=== PATIENT | female | born 1980 | race Caucasian/White ===

== ENCOUNTER 2016-08-02 19:05 | Emergency (ER) | payer MEDICAID ==
[2016-08-02] MEDS ORDERED: IBUPROFEN 600 MG TABLET PO ONE (19:34)
--- NOTE | 2016-08-02 19:38 | Emergency Department Record ---
History of Present Illness - General Stated Complaint: FLU Time Seen by Provider: 08/02/16 19:31 Source: Patient Mode of Arrival: Ambulatory Limitations: No limitations - History of Present Illness Initial comments: 36 yo female presents to ED with a CC of body aches, eye pain, and fatigue that began this morning. Patient reports that her symptoms began this morning, reports that her and three boys all have influenza at home. Patient is here to be tested and receive treatment if positive. Onset/Timin -: Days(s) Radiation: Non-Radiating Quality: Aching Consistency: Constant Improves with: None Treatments Prior to Arrival: None - [place] Coma Scale Eye Response: (4) Open spontaneously Motor Response: (6) Obeys commands Verbal Response: (5) Oriented [place] Total: 15 - Related Data Home Medications Medication Instructions Recorded Confirmed Last Taken Trimethoprim [Trimethoprim] 100 mg PO QHS 06/07/16 08/02/16 08/01/16 Previous Rx's Medication Instructions Recorded Oseltamivir Phosphate [Tamiflu] 75 mg PO BID #10 capsule 08/02/16 Allergies Allergy/AdvReac Type Severity Reaction Status Date / Time amoxicillin trihydrate Allergy Intermediate VOMITING Verified 08/02/16 19:53 [From Augmentin] potassium clavulanate Allergy Intermediate VOMITING Verified 08/02/16 19:53 [From Augmentin] sulfamethoxazole Allergy Intermediate HIVES Verified 08/02/16 19:53 [From Bactrim] nitrofurantoin AdvReac VOMITING Verified 08/02/16 19:53 [From Macrobid] nitrofurantoin AdvReac VOMITING Verified 08/02/16 19:53 macrocrystalline [From Macrobid] Review of Systems Constitutional: Reports: Malaise. Denies: Chills, Fever, Night sweats Eyes: Reports: Eye pain. Denies: Eye discharge, Photophobia ENT: Denies: Congestion, Epistaxis, Hearing loss Respiratory: Denies: Cough, Dyspnea Cardiovascular: Denies: Chest pain, Dyspnea on exertion Endocrine: Denies: Fatigue, Heat or cold intolerance Gastrointestinal: Denies: Abdominal pain, Nausea, Vomiting Genitourinary: Denies: Frequency, Hematuria Musculoskeletal: Denies: Arthralgia, Back pain Skin: Denies: Bruising, Change in color Neurological: Denies: Abnormal gait, Confusion, Tingling, Tremors Psychiatric: Denies: Anxiety Hematological/Lymphatic: Denies: Anemia, Blood Clots Past Medical History - SOCIAL HISTORY Smoking Status: Former smoker Drug Use: None - RESPIRATORY Hx Respiratory Disorders: No - CARDIOVASCULAR Hx Cardio Disorders: No - NEURO Hx Neuro Disorders: No - GI Hx GI Disorders: Yes Hx Abdominal Pain: Yes Hx Irritable Bowel: Yes - Hx Genitourinary Disorders: Yes Hx UTI: Yes Comment:: sponge kidney - ENDOCRINE Hx Endocrine Disorders: Yes Hx Thyroid Disease: Yes (Hyper (now resolved)) - MUSCULOSKELETAL Hx Musculoskeletal Disorders: Yes Hx Back Injury: Yes - PSYCH Hx Psych Problems: Yes Hx Anxiety: Yes - HEMATOLOGY/ONCOLOGY Hx Hematology/Oncology Disorders: Yes Hx Blood Transfusions: Yes Hx Blood Transfusion Reaction: No Family Medical History Hx Cancer: Brother/Sister, Grandparents Hx HTN: Father Hx Seizures: Mother Physical Exam - General General Appearance: Alert, Oriented x3, Cooperative, No acute distress Limitations: No limitations - Head Head exam: Atraumatic, Normocephalic, Normal inspection Head exam detail: negative: Abrasion, Contusion, Nolan's sign, General tenderness, Hematoma, Laceration - Eye Eye exam: Normal appearance. negative: Conjunctival injection, Periorbital swelling, Periorbital tenderness, Scleral icterus - ENT Ear exam: negative: Auricular hematoma, Auricular trauma Nasal Exam: negative: Active bleeding, Discharge, Dried blood, Foreign body Mouth exam: negative: Drooling, Laceration, Muffled voice, Tongue elevation - Neck Neck exam: Normal inspection. negative: Meningismus, Tenderness - Respiratory Respiratory exam: Normal lung sounds bilaterally. negative: Respiratory distress, Rhonchi, Stridor, Wheezes - Cardiovascular Cardiovascular Exam: Regular rate, Normal rhythm, Normal heart sounds - GI/Abdominal GI/Abdominal exam: Soft. negative: Rebound, Rigid, Tenderness - Rectal Rectal exam: Deferred - exam: Deferred - Extremities Extremities exam: Normal inspection. negative: Calf tenderness, Pedal edema, Tenderness - Back Back exam: Denies: CVA tenderness (R), CVA tenderness (L) - Neurological Neurological exam: Alert, Normal gait, Oriented X3 - Psychiatric Psychiatric exam: Normal affect, Normal mood - Skin Skin exam: Normal color. negative: Abrasion Type of lesion: negative: abrasion Course - Reevaluation(s) Reevaluation #1: 08/02/16 20:08 Influenza negative. Patient however does clinically appear to have symptoms c/ w influenza, will treat with Tamiflu due to exposure and clinical appearance. Disposition Disposition: Discharge Clinical Impression: Viral Infection Disposition: Home, Self-Care Condition: (2) Stable Instructions: Influenza (ED) Additional Instructions: Return to ED if your symptoms worsen or if you have any concerns. Tamiflu as directed. Follow-up with your family doctor in 3-5 days as directed. Prescriptions: Oseltamivir Phosphate [Tamiflu] 75 mg PO BID #10 capsule Time of Disposition: 20:10
[2016-08-02 20:00] LABS: INFLUENZA A NEGATIVE (NEGATIVE)
[2016-08-02 20:01] LABS: INFLUENZA B NEGATIVE (NEGATIVE)
== END 2016-08-02 20:39 | disposition home or self-care (01) ==
LOC: ER 19:05
DX: B34.9 Viral infection, unspecified (principal); R53.83 Other fatigue
CPT/HCPCS: 87400; 99282

== ENCOUNTER 2016-12-13 21:05 | Emergency (ER) | payer MEDICAID ==
--- NOTE | 2016-12-13 21:10 | Emergency Department Record ---
History of Present Illness - General Stated complaint: UTI Time Seen by Provider: 12/13/16 21:09 Source: Patient - History of Present Illness Initial comments: Patient states that she has frequency and dysuria at the end of urinating which reveals bloody urine. She has medullary sponge kidney, and gets many UTI's. She had a Keflex pill left over from her last UTI so she took that about 4 hours ago. She denies f,c,n,v,d,flank pain. She is uncomfortable in her suprapubic region. MD Complaint: Dysuria - Related Data Home Medications Medication Instructions Recorded Confirmed Last Taken Trimethoprim [Trimethoprim] 100 mg PO QHS 06/07/16 12/13/16 08/01/16 Previous Rx's Medication Instructions Recorded Cephalexin [Keflex] 500 mg PO QID #40 cap 12/13/16 Allergies Allergy/AdvReac Type Severity Reaction Status Date / Time amoxicillin trihydrate Allergy Intermediate VOMITING Verified 08/02/16 19:53 [From Augmentin] potassium clavulanate Allergy Intermediate VOMITING Verified 08/02/16 19:53 [From Augmentin] sulfamethoxazole Allergy Intermediate HIVES Verified 08/02/16 19:53 [From Bactrim] nitrofurantoin AdvReac VOMITING Verified 08/02/16 19:53 [From Macrobid] nitrofurantoin AdvReac VOMITING Verified 08/02/16 19:53 macrocrystalline [From Macrobid] Review of Systems Reviewed: No additional complaints except as noted below Constitutional: Reports: As per HPI. Denies: Chills, Fever, Malaise, Night sweats, Weakness, Weight change Eyes: Reports: As per HPI. Denies: Eye discharge, Eye pain, Photophobia, Vision change ENT: Reports: As per HPI. Denies: Congestion, Dental pain, Ear pain, Epistaxis , Hearing loss, Throat pain Respiratory: Reports: As per HPI. Denies: Cough, Dyspnea, Hemoptysis, Stridor, Wheezes Cardiovascular: Reports: As per HPI. Denies: Arrhythmia, Chest pain, Dyspnea on exertion, Edema, Murmurs, Orthopnea, Palpitations, Paroxysmal nocturnal dyspnea, Rheumatic Fever, Syncope Endocrine: Reports: As per HPI. Denies: Fatigue, Heat or cold intolerance, Polydipsia, Polyuria Gastrointestinal: Reports: As per HPI. Denies: Abdominal pain, Constipation, Diarrhea, Hematemesis, Hematochezia, Melena, Nausea, Vomiting Genitourinary: Reports: As per HPI. Denies: Abnormal menses, Discharge, Dyspareunia, Dysuria, Frequency, Hematuria, Incontinence, Retention, Urgency Musculoskeletal: Reports: As per HPI. Denies: Arthralgia, Back pain, Gout, Joint swelling, Myalgia, Neck pain Skin: Reports: As per HPI. Denies: Bruising, Change in color, Change in hair/ nails, Lesions, Pruritus, Rash Neurological: Reports: As per HPI. Denies: Abnormal gait, Confusion, Headache, Numbness, Paresthesias, Seizure, Tingling, Tremors, Vertigo, Weakness Psychiatric: Reports: As per HPI. Denies: Anxiety, Auditory hallucinations, Depression, Homicidal thoughts, Suicidal thoughts, Visual hallucinations Hematological/Lymphatic: Reports: As per HPI. Denies: Anemia, Blood Clots, Easy bleeding, Easy bruising, Swollen glands Past Medical History - SOCIAL HISTORY Smoking Status: Former smoker Drug Use: None - RESPIRATORY Hx Respiratory Disorders: No - CARDIOVASCULAR Hx Cardio Disorders: No - NEURO Hx Neuro Disorders: No - GI Hx GI Disorders: Yes Hx Abdominal Pain: Yes Hx Irritable Bowel: Yes - Hx Genitourinary Disorders: Yes Hx UTI: Yes Comment:: sponge kidney - ENDOCRINE Hx Endocrine Disorders: Yes Hx Thyroid Disease: Yes (Hyper (now resolved)) - MUSCULOSKELETAL Hx Musculoskeletal Disorders: Yes Hx Back Injury: Yes - PSYCH Hx Psych Problems: Yes Hx Anxiety: Yes - HEMATOLOGY/ONCOLOGY Hx Hematology/Oncology Disorders: Yes Hx Blood Transfusions: Yes Hx Blood Transfusion Reaction: No Family Medical History Hx Cancer: Brother/Sister, Grandparents Hx HTN: Father Hx Seizures: Mother Physical Exam - General General Appearance: Alert, Oriented x3, Cooperative, No acute distress - Head Head exam: Normal inspection - Eye Eye exam: Normal appearance, PERRL Pupils: Normal accommodation - ENT ENT exam: Normal exam, Mucous membranes moist, Normal external ear exam, Normal orophraynx, TM's normal bilaterally Ear exam: Normal external inspection. negative: External canal tenderness Nasal Exam: Normal inspection. negative: Discharge, Sinus tenderness Mouth exam: Normal external inspection, Tongue normal Teeth exam: Normal inspection. negative: Dental caries Throat exam: Normal inspection. negative: Tonsillar erythema, Tonsillar exudate - Neck Neck exam: Normal inspection, Full ROM. negative: Tenderness - Respiratory Respiratory exam: Normal lung sounds bilaterally. negative: Respiratory distress - Cardiovascular Cardiovascular Exam: Regular rate, Normal rhythm, Normal heart sounds - GI/Abdominal GI/Abdominal exam: Soft, Normal bowel sounds, Other (uncomfortale with suprapubic palpation). negative: Tenderness - Rectal Rectal exam: Deferred - exam: Deferred - Extremities Extremities exam: Normal inspection, Full ROM, Normal capillary refill. negative: Tenderness - Back Back exam: Reports: Normal inspection, Full ROM. Denies: CVA tenderness (R), CVA tenderness (L), Muscle spasm, Rash noted, Tenderness - Neurological Neurological exam: Alert, Normal gait, Oriented X3, Reflexes normal - Psychiatric Psychiatric exam: Normal affect, Normal mood - Skin Skin exam: Dry, Intact, Normal color, Warm Medical Decision Making - Management Options MDM Management: No Additional Work-up Planned Disposition Disposition: Discharge Clinical Impression: UTI (urinary tract infection) Qualifiers: Urinary tract infection type: acute cystitis Hematuria presence: with hematuria Qualified Code(s): N30.01 - Acute cystitis with hematuria Disposition: Home, Self-Care Instructions: Urinary Tract Infection in Women (ED), Dysuria (ED) Additional Instructions: Take your home keflex 500 mg when you get home Take antibiotics until gone as directed. Follow up with PCP for repeat UA to be sure it clears. Push fluids. Tylenol or ibuprofen as needed as directed for pain. Prescriptions: Cephalexin [Keflex] 500 mg PO QID #40 cap
[2016-12-13 21:19] LABS: URINE APPEARANCE SL CLOUDY; URINE BILIRUBIN NEGATIVE (NEGATIVE); URINE BLOOD LARGE (NEGATIVE); URINE COLOR OTHER; URINE GLUCOSE (UA) NEGATIVE (NEGATIVE); URINE KETONE NEGATIVE (NEGATIVE); URINE LEUKOCYTE ESTERASE MODERATE (NEGATIVE); URINE NITRITE NEGATIVE (NEGATIVE)
[2016-12-13 21:28] LABS: HCG,QUALITATIVE URINE NEGATIVE (NEGATIVE); URINE AMORPHOUS SEDIMENT 2+; URINE BACTERIA 2+; URINE RBC >50 (NONE SEEN); URINE SQUAMOUS EPITHELIAL CELL 0 - 2 /hpf; URINE TRANSITIONAL EPI CELLS 0 - 2 /hpf; URINE WBC 21 - 35 (0-2/hpf)
== END 2016-12-13 21:38 | disposition home or self-care (01) ==
LOC: ER 21:05
DX: N30.01 Acute cystitis with hematuria (principal)
CPT/HCPCS: 81001; 81025; 99282

== ENCOUNTER 2017-01-01 13:41 | Emergency (ER) | payer MEDICAID ==
[2017-01-01] MEDS ORDERED: LORAZEPAM 2 MG/ML VIAL IV ONE (13:49)
[2017-01-01] MEDS ORDERED: ONDANSETRON HCL IV 4 MG/2 ML VIAL IVP ONE (13:56)
[2017-01-01] MEDS ORDERED: ORPHENADRINE CITRATE 60MG/2ML VIAL IVP ONE (13:56)
--- NOTE | 2017-01-01 13:56 | Emergency Department Record ---
History of Present Illness - General Chief Complaint: Neck Injury/Pain Stated Complaint: ARISTIDES,NECK PAIN Time Seen by Provider: 01/01/17 13:47 Source: Patient - History of Present Illness Initial Comments: Patient was getting her neck adjusted by a chiropractor robin prior to arricval. When she tried to get up she felt something pop and now has severe pain in her left neck and down her left arm. She has a history of disc problems in her neck and spine. MD Complaint: Neck pain - Related Data Home Medications Medication Instructions Recorded Confirmed Last Taken Trimethoprim [Trimethoprim] 100 mg PO QHS 06/07/16 12/13/16 08/01/16 Previous Rx's Medication Instructions Recorded Cephalexin [Keflex] 500 mg PO QID #40 cap 12/13/16 Ondansetron [Zofran Odt] 4 mg PO Q8H #20 tab.rapdis 01/01/17 Orphenadrine Citrate [Norflex] 100 mg PO Q12H PRN #20 tab 01/01/17 Tramadol HCl [Ultram] 50 mg PO Q8H #14 tab 01/01/17 Allergies Allergy/AdvReac Type Severity Reaction Status Date / Time amoxicillin trihydrate Allergy Intermediate VOMITING Verified 08/02/16 19:53 [From Augmentin] potassium clavulanate Allergy Intermediate VOMITING Verified 08/02/16 19:53 [From Augmentin] sulfamethoxazole Allergy Intermediate HIVES Verified 08/02/16 19:53 [From Bactrim] nitrofurantoin AdvReac VOMITING Verified 08/02/16 19:53 [From Macrobid] nitrofurantoin AdvReac VOMITING Verified 08/02/16 19:53 macrocrystalline [From Macrobid] Review of Systems Reviewed: No additional complaints except as noted below Constitutional: Reports: As per HPI. Denies: Chills, Fever, Malaise, Night sweats, Weakness, Weight change Eyes: Reports: As per HPI. Denies: Eye discharge, Eye pain, Photophobia, Vision change ENT: Reports: As per HPI. Denies: Congestion, Dental pain, Ear pain, Epistaxis , Hearing loss, Throat pain Respiratory: Reports: As per HPI. Denies: Cough, Dyspnea, Hemoptysis, Stridor, Wheezes Cardiovascular: Reports: As per HPI. Denies: Arrhythmia, Chest pain, Dyspnea on exertion, Edema, Murmurs, Orthopnea, Palpitations, Paroxysmal nocturnal dyspnea, Rheumatic Fever, Syncope Endocrine: Reports: As per HPI. Denies: Fatigue, Heat or cold intolerance, Polydipsia, Polyuria Gastrointestinal: Reports: As per HPI. Denies: Abdominal pain, Constipation, Diarrhea, Hematemesis, Hematochezia, Melena, Nausea, Vomiting Genitourinary: Reports: As per HPI. Denies: Abnormal menses, Discharge, Dyspareunia, Dysuria, Frequency, Hematuria, Incontinence, Retention, Urgency Musculoskeletal: Reports: As per HPI. Denies: Arthralgia, Back pain, Gout, Joint swelling, Myalgia, Neck pain Skin: Reports: As per HPI. Denies: Bruising, Change in color, Change in hair/ nails, Lesions, Pruritus, Rash Neurological: Reports: As per HPI. Denies: Abnormal gait, Confusion, Headache, Numbness, Paresthesias, Seizure, Tingling, Tremors, Vertigo, Weakness Psychiatric: Reports: As per HPI. Denies: Anxiety, Auditory hallucinations, Depression, Homicidal thoughts, Suicidal thoughts, Visual hallucinations Hematological/Lymphatic: Reports: As per HPI. Denies: Anemia, Blood Clots, Easy bleeding, Easy bruising, Swollen glands Past Medical History - SOCIAL HISTORY Smoking Status: Former smoker Drug Use: None - RESPIRATORY Hx Respiratory Disorders: No - CARDIOVASCULAR Hx Cardio Disorders: No - NEURO Hx Neuro Disorders: No - GI Hx GI Disorders: Yes Hx Abdominal Pain: Yes Hx Irritable Bowel: Yes - Hx Genitourinary Disorders: Yes Hx UTI: Yes Comment:: sponge kidney - ENDOCRINE Hx Endocrine Disorders: Yes Hx Thyroid Disease: Yes (Hyper (now resolved)) - MUSCULOSKELETAL Hx Musculoskeletal Disorders: Yes Hx Back Injury: Yes - PSYCH Hx Psych Problems: Yes Hx Anxiety: Yes - HEMATOLOGY/ONCOLOGY Hx Hematology/Oncology Disorders: Yes Hx Blood Transfusions: Yes Hx Blood Transfusion Reaction: No Family Medical History Hx Cancer: Brother/Sister, Grandparents Hx HTN: Father Hx Seizures: Mother Physical Exam - General General Appearance: Alert, Oriented x3, Cooperative, No acute distress, Severe distress (crying, anxious, hyperventillating) - Head Head exam: Normal inspection - Eye Eye exam: Normal appearance, PERRL Pupils: Normal accommodation - ENT ENT exam: Normal exam, Mucous membranes moist, Normal external ear exam, Normal orophraynx, TM's normal bilaterally Ear exam: Normal external inspection. negative: External canal tenderness Nasal Exam: Normal inspection. negative: Discharge, Sinus tenderness Mouth exam: Normal external inspection, Tongue normal Teeth exam: Normal inspection. negative: Dental caries Throat exam: Normal inspection. 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 negative: Respiratory distress - Cardiovascular Cardiovascular Exam: Regular rate, Normal rhythm, Normal heart sounds - GI/Abdominal GI/Abdominal exam: Soft, Normal bowel sounds. negative: Tenderness - Rectal Rectal exam: Deferred - exam: Deferred - Extremities Extremities exam: Normal inspection, Full ROM, Normal capillary refill. negative: Tenderness - Back Back exam: Reports: Normal inspection, Full ROM. Denies: Muscle spasm, Rash noted, Tenderness - Neurological Neurological exam: Alert, Normal gait, Oriented X3, Reflexes normal - Psychiatric Psychiatric exam: Normal affect, Normal mood - Skin Skin exam: Dry, Intact, Normal color, Warm Course - Reevaluation(s) Reevaluation #1: More comfortable, less anxious. 01/01/17 14:36 Reevaluation #2: Patient has greatly improved with her pain level but is not pain free in her left neck trapezius muscle mainly. 01/01/17 16:50 Medical Decision Making - Management Options MDM Management: Additional Work-up Planned (e.g. ADM/Transfer/OP Study) (Follow up with MRI through PCP) - Data Complexity MDM Data: X-Ray Ordered and/or Reviewed (CT Cervical spine: Degenerative changes C5-C6 level per radiologist.) - Lab Data Result diagrams: 01/01/17 14:10 01/01/17 14:10 Disposition Disposition: Discharge Clinical Impression: Cervical radiculopathy at C5, Cervical radiculopathy at C6 Disposition: Home, Self-Care Condition: (1) Good Instructions: Cervical Radiculopathy (ED) Additional Instructions: No lifting with arms. Follow up with PCP for MRI of cervical spine. Take zofran 30 minutes prior to taking other medications. Take norflex and ultram as directed for pain and muscle spasm., Prescriptions: Ondansetron [Zofran Odt] 4 mg PO Q8H #20 tab.rapdis Orphenadrine Citrate [Norflex] 100 mg PO Q12H PRN #20 tab PRN Reason: Muscle Spasms Tramadol HCl [Ultram] 50 mg PO Q8H #14 tab Forms: Patient Portal Access Quality - Quality Measures Quality Measures: N/A - Blood Pressure Screening Blood Pressure Classification: Pre-Hypertensive BP Reading Systolic Measurement: 123 Diastolic Measurement: 70 Screening for High Blood Pressure: < Normal BP, F/U Not Required > [[id number]] Normal BP Follow-up Interventions: No follow-up required
[2017-01-01] MEDS ORDERED: 0.9 % SODIUM CHLORIDE 1,000 ML BAG IV ONE (14:08)
[2017-01-01 14:27] LABS: BASO % 0.7 % (0-6); EOS % 0.7 % (0-6); GRAN % 52.1 % (47-80); HEMATOCRIT 43.1 % (35.0-47.0); HEMOGLOBIN 14.6 gm/dl (11.6-16.0); LYMPH % 37.3 % (16-45); MEAN CELL VOLUME 90.7 fl (81-97); MEAN CORPUSCULAR HEMOGLOBIN 30.7 pg (27-33); MEAN CORPUSCULAR HGB CONC 33.9 g/dl (32-36); MEAN PLATELET VOLUME 11.4 fl (7.4-10.4); MONO % 9.2 % (0-9); PLATELET COUNT 231 K/uL (130-400); RED BLOOD COUNT 4.75 M/uL (3.80-5.40); RED CELL DISTRIBUTION WIDTH 12.5 % (11.5-14.5)
[2017-01-01 14:38] LABS: ANION GAP 13.1 (7-16); BLOOD UREA NITROGEN 13 mg/dL (7-17); CARBON DIOXIDE 25.9 mmol/L (22-30); CREATININE 0.8 mg/dL (0.52-1.04); EST GLOMERULAR FILTRATION RATE > 60 ml/min; GLUCOSE,RANDOM 85 mg/dL (70-110)
--- NOTE | 2017-01-03 13:17 | CT SCAN REPORT ---
EXAM: CT OF THE BRAIN WITHOUT CONTRAST HISTORY: HEADACHE. TECHNIQUE: Sequential axial images were obtained from the foramen magnum to the vertex without contrast administration. FINDINGS: The brain volume is normal. There is no large territorial infarct, hemorrhage, mass effect or midline shift. The orbits, paranasal sinuses, and mastoid air cells are normal. IMPRESSION: NO ACUTE INTRACRANIAL ABNORMALITY IS APPRECIATED. JOB NUMBER: [id number] MTDD
--- NOTE | 2017-01-03 13:20 | CT SCAN REPORT ---
EXAM: CT OF THE CERVICAL SPINE WITHOUT CONTRAST HISTORY: PAIN. TECHNIQUE: Sequential axial images were obtained through the cervical spine without intravenous contrast administration. FINDINGS: There is normal vertebral body height and alignment. There is no evidence of fracture, subluxation or perched facet. There is disk spur complex at C5-C6. This produces bilateral neural foraminal narrowing. There is no central canal stenosis. IMPRESSION: 1. NO EVIDENCE OF FRACTURE, SUBLUXATION, OR PERCHED FACET. 2. AT THE C5-C6 LEVEL THERE IS A DISK SPUR COMPLEX EFFACING THE VENTRAL THECAL SAC. THIS PRODUCES NO SIGNIFICANT CENTRAL CANAL STENOSIS. JOB NUMBER: [id number] [facility]
== END 2017-01-01 17:07 | disposition home or self-care (01) ==
LOC: ER 13:41
DX: M54.12 Radiculopathy, cervical region (principal); R51 Headache
CPT/HCPCS: 99284 ×2; 96374; 96375; 85025; 80048; 72125; 70450; J2405; J2360

== ENCOUNTER 2017-07-16 15:59 | Emergency (ER) | payer MEDICAID ==
[2017-07-16 17:00] LABS: URINE APPEARANCE SL CLOUDY; URINE BILIRUBIN NEGATIVE (NEGATIVE); URINE BLOOD TRACE-I (NEGATIVE); URINE COLOR YELLOW; URINE GLUCOSE (UA) NEGATIVE (NEGATIVE); URINE KETONE NEGATIVE (NEGATIVE); URINE LEUKOCYTE ESTERASE NEGATIVE (NEGATIVE); URINE NITRITE NEGATIVE (NEGATIVE); URINE PROTEIN NEGATIVE (NEGATIVE); URINE UROBILINOGEN 0.2 E.U./dL (0.20 - 1.00)
[2017-07-16 17:07] LABS: HCG,QUALITATIVE URINE NEGATIVE (NEGATIVE); URINE AMORPHOUS SEDIMENT 2+; URINE BACTERIA FEW; URINE WBC 0 - 2 (0-2/hpf)
--- NOTE | 2017-07-16 18:11 | Emergency Department Record ---
History of Present Illness - General Chief Complaint: Abdominal Pain Stated Complaint: LT SIDE PAIN (KIDNEY) Time Seen by Provider: 07/16/17 18:00 Source: Patient Mode of Arrival: Ambulatory Limitations: No limitations - History of Present Illness Initial Comments: The patient is here due to L sided AP for about 3 hours prior to presenting to the ER. She states the pain is sharp and stabbing. There has been nausea associated with the pain but no vomiting or back pain. The patient also has had mild dysuria for the last 2 days and she gets frequent UTI's. She believes she has a UTI at this time. The patient denies any fever, vaginal issues, diarrhea or lightheadedness. MD Complaint: Abdominal pain Onset/Timin -: Hour(s) Location: LLQ Radiation: Other Consistency: Constant Improves With: Nothing Worsens With: Movement Associated Symptoms: Nausea - Related Data LMP Date: 06/24/17 Previous Rx's Medication Instructions Recorded Cephalexin [Keflex] 500 mg PO TID #21 cap 07/16/17 Phenazopyridine HCl [Pyridium] 100 mg PO TID #6 tablet 07/16/17 Allergies Allergy/AdvReac Type Severity Reaction Status Date / Time amoxicillin trihydrate Allergy Intermediate VOMITING Verified 07/16/17 17:46 [From Augmentin] ciprofloxacin [From Cipro] Allergy Intermediate VOMITING Verified 07/16/17 17:46 ciprofloxacin HCl Allergy Intermediate VOMITING Verified 07/16/17 17:46 [From Cipro] potassium clavulanate Allergy Intermediate VOMITING Verified 07/16/17 17:46 [From Augmentin] sulfamethoxazole Allergy Intermediate HIVES Verified 07/16/17 17:46 [From Bactrim] nitrofurantoin AdvReac VOMITING Verified 07/16/17 17:46 [From Macrobid] nitrofurantoin AdvReac VOMITING Verified 07/16/17 17:46 macrocrystalline [From Macrobid] Travel Screening - Travel/Exposure Within Last 30 Days Have you traveled within the last 30 days?: No - Travel Symptoms Symptom Screening: None Review of Systems Constitutional: Denies: Chills, Fever, Malaise Eyes: Denies: Eye discharge ENT: Denies: Congestion Respiratory: Denies: Cough Gastrointestinal: Reports: Abdominal pain, Nausea. Denies: Diarrhea, Vomiting Genitourinary: Reports: Dysuria Past Medical History - SOCIAL HISTORY Smoking Status: Former smoker - RESPIRATORY Hx Respiratory Disorders: No - CARDIOVASCULAR Hx Cardio Disorders: No - NEURO Hx Neuro Disorders: No - GI Hx GI Disorders: Yes Hx Abdominal Pain: Yes Hx Irritable Bowel: Yes - Hx Genitourinary Disorders: Yes Hx UTI: Yes Comment:: sponge kidney - ENDOCRINE Hx Endocrine Disorders: Yes Hx Thyroid Disease: Yes (Hyper (now resolved)) - MUSCULOSKELETAL Hx Musculoskeletal Disorders: Yes Hx Back Injury: Yes - PSYCH Hx Psych Problems: Yes Hx Anxiety: Yes - HEMATOLOGY/ONCOLOGY Hx Hematology/Oncology Disorders: Yes Hx Blood Transfusions: Yes Hx Blood Transfusion Reaction: No Family Medical History Any Significant Family History?: Yes Hx Cancer: Brother/Sister, Grandparents Hx HTN: Father Hx Seizures: Mother Physical Exam - General General Appearance: Alert, Oriented x3, Cooperative, No acute distress - Head Head exam: Atraumatic, Normocephalic, Normal inspection - Eye Eye exam: Normal appearance, PERRL - Neck Neck exam: Normal inspection, Full ROM. negative: Tenderness - Respiratory Respiratory exam: Normal lung sounds bilaterally. negative: Respiratory distress - Cardiovascular Cardiovascular Exam: Regular rate, Normal rhythm, Normal heart sounds - GI/Abdominal GI/Abdominal exam: Soft, Normal bowel sounds. negative: Tenderness - Extremities Extremities exam: Normal inspection, Full ROM, Normal capillary refill. negative: Tenderness - Back Back exam: Denies: CVA tenderness (R), CVA tenderness (L) Course Vital Signs 07/16/17 17:47 Temperature 98.4 F Pulse Rate 90 Respiratory 18 Rate Blood Pressure 94/62 Pulse Ox 97 - Reevaluation(s) Reevaluation #1: I did discuss the issues with the patient. I did explain to her that we will need to obtain lab work and a CT to R/O any kidney or ureter stone due to her complaints. The patient is ONLY interested in an Abx due to the fact she is convinced she has a UTI. She is frustrated due to waiting 2 hours in the waiting room to be seen. I explained to her that the standard of care is to obtain these tests due to the fact her urine is only very mildly infected and is not probably causing her symptoms. I also did explain to her the risks of leaving and NOT doing those tests are possible sepsis, kidney failure and damage , disability and . The patient has proper decision making capacity at this time and has decided to refuse the proper testing. I also explained to her that we cannot be held liable for NOT doing the tests or any subsequent poor outcome and the patient understands and accepts the risks. 07/16/17 18:18 Medical Decision Making - Lab Data Lab Results 07/16/17 Range/Units 16:48 Urine Color Yellow Urine Appearance Sl cloudy Urine pH 7.5 (5.0-8.0) Ur Specific [place] 1.020 (1.002-1.030) Urine Protein Negative (NEGATIVE) Urine Glucose (UA) Negative (NEGATIVE) Urine Ketones Negative (NEGATIVE) Urine Blood Trace-i (NEGATIVE) Urine Nitrite Negative (NEGATIVE) Urine Bilirubin Negative (NEGATIVE) Urine Urobilinogen 0.2 (0.20 - 1.00) E.U./dL Ur Leukocyte Esterase Negative (NEGATIVE) Urine RBC 3 - 6 (NONE SEEN) Urine WBC 0 - 2 (0-2/hpf) U Non-Squamous Epi Cells 3 - 6 /hpf Amorphous Sediment 2+ Urine Bacteria Few Urine HCG, Qual Negative (NEGATIVE) Disposition Disposition: Discharge Clinical Impression: Cystitis Disposition: Against Medical Advice Condition: (2) Stable Instructions: Abdominal Pain (ED) Additional Instructions: Please drink plenty of fluids. Please take the Keflex and pyridium as directed. See your doctor if not better by Tuesday. Return to the ER for any worsening pain , fever, vomiting or blood in the urine. Prescriptions: Cephalexin [Keflex] 500 mg PO TID #21 cap Phenazopyridine HCl [Pyridium] 100 mg PO TID #6 tablet Forms: Patient Portal Access Time of Disposition: 18:11 Quality - Quality Measures Quality Measures: N/A - Blood Pressure Screening View Details: Yes Does Patient Have Any of the Following: No Blood Pressure Classification: Normal BP Reading Systolic Measurement: 94 Diastolic Measurement: 62 Screening for High Blood Pressure: < Normal BP, F/U Not Required > [G8783]
[2017-07-16] MEDS ORDERED: CEPHALEXIN 500 MG CAPSULE PO STA (18:17)
== END 2017-07-16 18:20 | disposition left against medical advice (07) ==
LOC: ER 15:59
DX: N30.90 Cystitis, unspecified without hematuria (principal); R11.0 Nausea; R10.32 Left lower quadrant pain
CPT/HCPCS: 81001; 81025; 99282

== ENCOUNTER 2018-04-01 13:51 | Emergency (ER) | payer MEDICAID ==
[2018-04-01] MEDS ORDERED: ONDANSETRON HCL IV 4 MG/2 ML VIAL IV ONE (14:35)
[2018-04-01] MEDS ORDERED: 0.9 % SODIUM CHLORIDE 1,000 ML BAG IV ONE ×2 (14:35→15:39)
[2018-04-01 14:37] LABS: TOTAL PROTEIN 7.7 g/dL (6.6-8.7)
[2018-04-01 14:42] LABS: ALBUMIN 4.3 g/dL (4.0-5.0); ALKALINE PHOSPHATASE 55 U/L (35-104); ALT/SGPT 14 U/L (<33); AST/SGOT 17 U/L (10.0-35.0)
[2018-04-01 14:43] LABS: BILIRUBIN,DIRECT < 0.2 mg/dL (0-0.3)
[2018-04-01 14:54] LABS: BASO % 0.1 % (0-6); EOS % 0.1 % (0-6); GRAN % 63.8 % (47-80); HEMATOCRIT 41.4 % (35.0-47.0); HEMOGLOBIN 14.5 gm/dl (11.6-16.0); LYMPH % 23.2 % (16-45); MEAN CELL VOLUME 88.1 fl (81-97); MEAN CORPUSCULAR HEMOGLOBIN 30.9 pg (27-33); MEAN PLATELET VOLUME 11.7 fl (7.4-10.4); MONO % 12.8 % (0-9); PLATELET COUNT 219 K/uL (130-400); RED CELL DISTRIBUTION WIDTH 12.4 % (11.5-14.5); WHITE BLOOD COUNT W/O DIFF 6.8 K/uL (4.2-12.2)
--- NOTE | 2018-04-01 15:39 | Emergency Department Record ---
History of Present Illness - General Chief complaint: GI Bleed Stated complaint: POOPING BLOOD Time Seen by Provider: 04/01/18 14:26 Source: Patient Mode of Arrival: Ambulatory Limitations: No limitations - History of Present Illness Initial comments: pt has had diarrhea for 3 days every 30 minutes. she states today she had blood streaking in it. she states her recently had diarrhea and her has a hx of cryptosporidium. 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 she has had no vomiting but has had nausea MD complaint: Blood streaked stool Onset/Timin -: Days(s) Improves with: None Worsens with: None Associated Symptoms: Abdominal pain, Diarrhea, Nausea - Related Data Previous Rx's Medication Instructions Recorded Ondansetron [Zofran Odt] 4 mg PO Q8H #7 tab.rapdis 04/01/18 Allergies Allergy/AdvReac Type Severity Reaction Status Date / Time sulfamethoxazole Allergy Intermediate HIVES Verified 04/01/18 13:59 [From Bactrim] amoxicillin trihydrate AdvReac Intermediate VOMITING Verified 04/01/18 15:35 [From Augmentin] ciprofloxacin [From Cipro] AdvReac Intermediate VOMITING Verified 04/01/18 15:35 ciprofloxacin HCl AdvReac Intermediate VOMITING Verified 04/01/18 15:35 [From Cipro] potassium clavulanate AdvReac Intermediate VOMITING Verified 04/01/18 15:35 [From Augmentin] nitrofurantoin AdvReac VOMITING Verified 04/01/18 13:59 [From Macrobid] nitrofurantoin AdvReac VOMITING Verified 04/01/18 13:59 macrocrystalline [From Macrobid] Travel Screening - Travel/Exposure Within Last 30 Days Have you traveled within the last 30 days?: No Review of Systems Reviewed: No additional complaints except as noted below Constitutional: Reports: As per HPI. Denies: Chills, Fever, Malaise, Night sweats, Weakness, Weight change Eyes: Reports: As per HPI. Denies: Eye discharge, Eye pain, Photophobia, Vision change ENT: Reports: As per HPI. Denies: Congestion, Dental pain, Ear pain, Epistaxis , Hearing loss, Throat pain Respiratory: Reports: As per HPI. Denies: Cough, Dyspnea, Hemoptysis, Stridor, Wheezes Cardiovascular: Reports: As per HPI. Denies: Arrhythmia, Chest pain, Dyspnea on exertion, Edema, Murmurs, Orthopnea, Palpitations, Paroxysmal nocturnal dyspnea, Rheumatic Fever, Syncope Endocrine: Reports: As per HPI. Denies: Fatigue, Heat or cold intolerance, Polydipsia, Polyuria Gastrointestinal: Reports: As per HPI. Denies: Abdominal pain, Constipation, Diarrhea, Hematemesis, Hematochezia, Melena, Nausea, Vomiting Genitourinary: Reports: As per HPI. Denies: Abnormal menses, Discharge, Dyspareunia, Dysuria, Frequency, Hematuria, Incontinence, Retention, Urgency Musculoskeletal: Reports: As per HPI. Denies: Arthralgia, Back pain, Gout, Joint swelling, Myalgia, Neck pain Skin: Reports: As per HPI. Denies: Bruising, Change in color, Change in hair/ nails, Lesions, Pruritus, Rash Neurological: Reports: As per HPI. Denies: Abnormal gait, Confusion, Headache, Numbness, Paresthesias, Seizure, Tingling, Tremors, Vertigo, Weakness Psychiatric: Reports: As per HPI. Denies: Anxiety, Auditory hallucinations, Depression, Homicidal thoughts, Suicidal thoughts, Visual hallucinations Hematological/Lymphatic: Reports: As per HPI. Denies: Anemia, Blood Clots, Easy bleeding, Easy bruising, Swollen glands Past Medical History - SOCIAL HISTORY Smoking Status: Former smoker Alcohol Use: None Drug Use: None - RESPIRATORY Hx Respiratory Disorders: No - CARDIOVASCULAR Hx Cardio Disorders: No - NEURO Hx Neuro Disorders: No - GI Hx GI Disorders: Yes Hx Abdominal Pain: Yes Hx Irritable Bowel: Yes - Hx Genitourinary Disorders: Yes Hx UTI: Yes Comment:: sponge kidney - ENDOCRINE Hx Endocrine Disorders: Yes Hx Thyroid Disease: Yes (Hyper (now resolved)) - MUSCULOSKELETAL Hx Musculoskeletal Disorders: Yes Hx Back Injury: Yes - PSYCH Hx Psych Problems: Yes Hx Anxiety: Yes - HEMATOLOGY/ONCOLOGY Hx Hematology/Oncology Disorders: Yes Hx Blood Transfusions: Yes Hx Blood Transfusion Reaction: No Family Medical History Any Significant Family History?: Yes Hx Cancer: Brother/Sister, Grandparents Hx HTN: Father Hx Seizures: Mother Physical Exam - General General Appearance: Alert, Oriented x3, Cooperative, Mild distress - Head Head exam: Normal inspection - Eye Eye exam: Normal appearance, PERRL, EOMI Pupils: Normal accommodation - ENT ENT exam: Normal exam, Mucous membranes dry, Normal external ear exam, Normal orophraynx Ear exam: Normal external inspection. negative: External canal tenderness Nasal Exam: Normal inspection. negative: Discharge, Sinus tenderness Mouth exam: Normal external inspection, Tongue normal Teeth exam: Normal inspection. negative: Dental caries Throat exam: Normal inspection. negative: Tonsillar erythema, Tonsillar exudate - Neck Neck exam: Normal inspection, Full ROM. negative: Tenderness - Respiratory Respiratory exam: Normal lung sounds bilaterally. negative: Respiratory distress - Cardiovascular Cardiovascular Exam: Regular rate, Normal rhythm, Normal heart sounds - GI/Abdominal GI/Abdominal exam: Soft, Normal bowel sounds. negative: Tenderness - Rectal Rectal exam: Deferred - exam: Deferred - Extremities Extremities exam: Normal inspection, Full ROM, Normal capillary refill. negative: Tenderness - Back Back exam: Reports: Normal inspection, Full ROM. Denies: Muscle spasm, Rash noted, Tenderness - Neurological Neurological exam: Alert, CN II-XII intact, Normal gait, Oriented X3 - Psychiatric Psychiatric exam: Normal affect, Normal mood - Skin Skin exam: Dry, Intact, Normal color, Warm Course Vital Signs 04/01/18 13:56 Temperature 97.9 F Pulse Rate 88 Respiratory 20 Rate Blood Pressure 130/60 Pulse Ox 98 - Reevaluation(s) Reevaluation #1: 04/01/18 18:20 pt has had no bouts of diarrhea or vomiting in 4 hours Reevaluation #2: 04/01/18 18:23 pt is going to bring her sample back Medical Decision Making - Lab Data Result diagrams: 04/01/18 14:40 04/01/18 14:35 Lab Results 04/01/18 04/01/18 Range/Units 14:20 14:40 WBC 6.8 (4.2-12.2) K/uL RBC 4.70 (3.80-5.40) M/uL Hgb 14.5 (11.6-16.0) gm/dl Hct 41.4 (35.0-47.0) % MCV 88.1 (81-97) fl MCH 30.9 (27-33) pg MCHC 35.0 (32-36) g/dl RDW 12.4 (11.5-14.5) % Plt Count 219 (130-400) K/uL MPV 11.7 H (7.4-10.4) fl Gran % 63.8 (47-80) % Lymphocytes % 23.2 (16-45) % Monocytes % 12.8 H (0-9) % Eosinophils % 0.1 (0-6) % Basophils % 0.1 (0-6) % Total Bilirubin 0.50 (0.2-1.0) mg/dL Direct Bilirubin < 0.2 (0-0.3) mg/dL AST 17 (10.0-35.0) U/L ALT 14 (<33) U/L Alkaline Phosphatase 55 (35-104) U/L Total Protein 7.7 (6.6-8.7) g/dL Albumin 4.3 (4.0-5.0) g/dL Disposition Disposition: Discharge Clinical Impression: Diarrhea Qualifiers: Diarrhea type: unspecified type Qualified Code(s): R19.7 - Diarrhea, unspecified Disposition: Home, Self-Care Condition: (1) Good Instructions: Acute Diarrhea (ED) Additional Instructions: push fluids. follow up with family doctor, return sooner if worse. bring stool sample in. eat bananas, rice, applesauce and toast. Prescriptions: Ondansetron [Zofran Odt] 4 mg PO Q8H #7 tab.rapdis Forms: Patient Portal Access Quality - Quality Measures Quality Measures: N/A - Blood Pressure Screening Does Patient Have Any of the Following: No Blood Pressure Classification: Pre-Hypertensive BP Reading Systolic Measurement: 130 Diastolic Measurement: 60 Screening for High Blood Pressure: < Pre-Hypertensive BP, F/U Documented > [ G8950] Pre-Hypertensive Follow-up Interventions: Follow-up with rescreen every year.
[2018-04-01 15:58] LABS: ALB/GLOB RATIO 1.3 (1.1-1.8); ALBUMIN 4.4 g/dL (4.0-5.0); ALKALINE PHOSPHATASE 55 U/L (35-104); ALT/SGPT 13 U/L (<33); AST/SGOT 18 U/L (10.0-35.0); BLOOD UREA NITROGEN 10 mg/dL (6-20); CREATININE 0.7 mg/dL (0.5-0.9); EST GLOMERULAR FILTRATION RATE > 60 mL/min; GLUCOSE,RANDOM 87 mg/dL (74-109); LIPASE 65 U/L (13-60); TOTAL PROTEIN 7.7 g/dL (6.6-8.7)
[2018-04-01 17:03] LABS: URINE APPEARANCE CLEAR; URINE BILIRUBIN NEGATIVE (NEGATIVE); URINE BLOOD TRACE-I (NEGATIVE); URINE COLOR YELLOW; URINE GLUCOSE (UA) NEGATIVE (NEGATIVE); URINE KETONE 15 mg/dL (NEGATIVE); URINE LEUKOCYTE ESTERASE NEGATIVE (NEGATIVE); URINE NITRITE NEGATIVE (NEGATIVE); URINE PROTEIN NEGATIVE (NEGATIVE); URINE UROBILINOGEN 0.2 E.U./dL (0.20 - 1.00)
[2018-04-01 17:17] LABS: URINE RBC 0 - 2 (NONE SEEN); URINE WBC 0 - 2 (0-2/hpf)
[2018-04-01] MEDS ORDERED: ONDANSETRON HCL IV 4 MG/2 ML VIAL IVP ONE (17:21)
== END 2018-04-01 18:40 | disposition home or self-care (01) ==
LOC: ER 13:51
DX: R19.7 Diarrhea, unspecified (principal); R11.0 Nausea; F17.210 Nicotine dependence, cigarettes, uncomplicated
CPT/HCPCS: 99284 ×2; 96374; 96375; 96361; 83690; 85025; 80076; 80053; 81001; J2405; J7030

== ENCOUNTER 2018-05-30 17:31 | Emergency (ER) | payer MEDICAID ==
[2018-05-30] MEDS ORDERED: 0.9 % SODIUM CHLORIDE 1,000 ML BAG IV ONE (17:59)
[2018-05-30] MEDS ORDERED: ONDANSETRON HCL IV 4 MG/2 ML VIAL IV ONE (17:59)
--- NOTE | 2018-05-30 18:04 | Emergency Department Record ---
History of Present Illness - General Chief complaint: Nausea, Vomiting, Diarrhea Stated complaint: CDIF Time Seen by Provider: 05/30/18 17:41 Source: Patient Mode of Arrival: Ambulatory Limitations: No limitations - History of Present Illness Initial comments: Pt with confirmed diagnosis of C. Dif diarrhea on Vancomycin 250mg QID for a week without improvement. Has recurrent "boiling gas" followed by diarrhea on a daily basis. No fever. Able to tolerate po liquids but feeling nauseated. Is trying to see GI but having difficulty getting an appointment with the holidays. Onset/Timin -: Days(s) Description of Diarrhea: Mucous, Other Associated Abdominal Pain: Yes Location: Diffuse Severity: Moderate Severity scale (1-10): 6 Quality: Aching Consistency: Constant Improves with: None Worsens with: None Associated Symptoms: Denies other symptoms - Related Data Home Medications Medication Instructions Recorded Confirmed Last Taken Vancomycin/0.9 % Sod Chloride 1 gm PO DAILY 05/30/18 05/30/18 Unknown [Vancomycin 1 G/100Ml-0.9% NaCl] Allergies Allergy/AdvReac Type Severity Reaction Status Date / Time sulfamethoxazole Allergy Intermediate HIVES Unverified 05/11/18 08:29 [From Bactrim] amoxicillin trihydrate AdvReac Intermediate VOMITING Unverified 05/11/18 08:29 [From Augmentin] ciprofloxacin [From Cipro] AdvReac Intermediate VOMITING Unverified 05/11/18 08: 29 ciprofloxacin HCl AdvReac Intermediate VOMITING Unverified 05/11/18 08:29 [From Cipro] potassium clavulanate AdvReac Intermediate VOMITING Unverified 05/11/18 08:29 [From Augmentin] nitrofurantoin AdvReac VOMITING Unverified 05/11/18 08:29 [From Macrobid] nitrofurantoin AdvReac VOMITING Unverified 05/11/18 08:29 macrocrystalline [From Macrobid] Travel Screening - Travel/Exposure Within Last 30 Days Have you traveled within the last 30 days?: No Review of Systems Constitutional: Denies: Chills, Fever, Weakness Eyes: Denies: Eye discharge, Photophobia ENT: Denies: Congestion, Ear pain Respiratory: Denies: Cough, Dyspnea Cardiovascular: Denies: Arrhythmia, Chest pain Endocrine: Denies: Fatigue, Polydipsia, Polyuria Gastrointestinal: Reports: As per HPI Genitourinary: Denies: Abnormal menses Musculoskeletal: Denies: Arthralgia Skin: Denies: Bruising Neurological: Denies: Abnormal gait, Headache, Seizure, Tingling Psychiatric: Denies: Anxiety Hematological/Lymphatic: Denies: Anemia Past Medical History - SOCIAL HISTORY Smoking Status: Former smoker - RESPIRATORY Hx Respiratory Disorders: No - CARDIOVASCULAR Hx Cardio Disorders: No - NEURO Hx Neuro Disorders: No - GI Hx GI Disorders: Yes Hx Abdominal Pain: Yes Hx Irritable Bowel: Yes - Hx Genitourinary Disorders: Yes Hx UTI: Yes Comment:: sponge kidney - ENDOCRINE Hx Endocrine Disorders: Yes Hx Thyroid Disease: Yes (Hyper (now resolved)) - MUSCULOSKELETAL Hx Musculoskeletal Disorders: Yes Hx Back Injury: Yes - PSYCH Hx Psych Problems: Yes Hx Anxiety: Yes - HEMATOLOGY/ONCOLOGY Hx Hematology/Oncology Disorders: Yes Hx Blood Transfusions: Yes Hx Blood Transfusion Reaction: No Family Medical History Any Significant Family History?: Yes Hx Cancer: Brother/Sister, Grandparents Hx HTN: Father Hx Seizures: Mother Physical Exam - General General Appearance: Alert, Oriented x3, Cooperative, No acute distress - Head Head exam: Atraumatic - Eye Eye exam: Normal appearance, PERRL - ENT ENT exam: Normal exam, Mucous membranes moist, Normal external ear exam, Normal orophraynx, TM's normal bilaterally - Neck Neck exam: Normal inspection, Full ROM. negative: Tenderness - Respiratory Respiratory exam: Normal lung sounds bilaterally. negative: Respiratory distress - Cardiovascular Cardiovascular Exam: Regular rate, Normal rhythm, Normal heart sounds - GI/Abdominal GI/Abdominal exam: Soft, Normal bowel sounds, Tenderness. negative: Guarding, Organomegaly, Rebound - Extremities Extremities exam: Normal inspection, Full ROM, Normal capillary refill. negative: Tenderness - Back Back exam: Reports: Normal inspection, Full ROM. Denies: Muscle spasm, Rash noted, Tenderness - Neurological Neurological exam: Alert, Normal gait, Oriented X3 - Psychiatric Psychiatric exam: Normal affect, Normal mood - Skin Skin exam: Normal color. negative: Rash Course Vital Signs 05/30/18 17:46 Temperature 97.9 F Pulse Rate 83 Respiratory 18 Rate Blood Pressure 124/80 Pulse Ox 93 L - Reevaluation(s) Reevaluation #1: 05/30/18 18:40 Labs reviewed and normal. Pt tolerates oral fluids. Plan for home with continued treatment with oral Vanco. Call to see Dr Barragan tomorrow. Medical Decision Making - Lab Data Result diagrams: 05/30/18 18:10 05/30/18 18:10 Disposition Disposition: Discharge Clinical Impression: C. difficile diarrhea Disposition: Home, Self-Care Condition: (2) Stable Instructions: Acute Nausea and Vomiting (ED) Additional Instructions: Continue current care plan with oral antibiotics. See Dr. Laurel alexander [email or web address]. Return as needed. Forms: Patient Portal Access Time of Disposition: 18:42 Quality - Quality Measures Quality Measures: N/A - Blood Pressure Screening Does Patient Have Any of the Following: No Blood Pressure Classification: Pre-Hypertensive BP Reading Systolic Measurement: 124 Diastolic Measurement: 80 Screening for High Blood Pressure: < Pre-Hypertensive BP, F/U Documented > [ G8950] Pre-Hypertensive Follow-up Interventions: Follow-up with rescreen every year.
[2018-05-30 18:25] LABS: BASO % 0.3 % (0-6); EOS % 0.7 % (0-6); GRAN % 59.6 % (47-80); HEMATOCRIT 40.1 % (35.0-47.0); HEMOGLOBIN 13.5 gm/dl (11.6-16.0); LYMPH % 30.4 % (16-45); MEAN CELL VOLUME 89.7 fl (81-97); MEAN CORPUSCULAR HEMOGLOBIN 30.2 pg (27-33); MEAN CORPUSCULAR HGB CONC 33.7 g/dl (32-36); PLATELET COUNT 238 K/uL (130-400); RED BLOOD COUNT 4.47 M/uL (3.80-5.40); RED CELL DISTRIBUTION WIDTH 12.5 % (11.5-14.5); URINE APPEARANCE CLEAR; URINE BILIRUBIN NEGATIVE (NEGATIVE); URINE BLOOD NEGATIVE (NEGATIVE); URINE COLOR YELLOW; URINE GLUCOSE (UA) NEGATIVE (NEGATIVE); URINE KETONE NEGATIVE (NEGATIVE); URINE LEUKOCYTE ESTERASE NEGATIVE (NEGATIVE); URINE NITRITE NEGATIVE (NEGATIVE); URINE PROTEIN NEGATIVE (NEGATIVE); URINE UROBILINOGEN 0.2 E.U./dL (0.20 - 1.00); WHITE BLOOD COUNT W/O DIFF 7.1 K/uL (4.2-12.2)
[2018-05-30 18:33] LABS: BLOOD UREA NITROGEN 8 mg/dL (6-20)
[2018-05-30 18:34] LABS: CREATININE 0.6 mg/dL (0.5-0.9); EST GLOMERULAR FILTRATION RATE > 60 mL/min
[2018-05-30 18:36] LABS: GLUCOSE,RANDOM 92 mg/dL (74-109)
== END 2018-05-30 18:57 | disposition home or self-care (01) ==
LOC: ER 17:31
DX: A04.72 Enterocolitis due to Clostridium difficile, not specified as recurrent (principal); R11.2 Nausea with vomiting, unspecified; Z87.891 Personal history of nicotine dependence
CPT/HCPCS: 80048; 81003; 81025; 85025; 96361; 96374; 99284; J2405; J7030

== ENCOUNTER 2018-11-03 17:44 | Emergency (ER) | payer MEDICAID ==
[2018-11-03 18:19] LABS: ABSOLUTE NEUTROPHIL COUNT 5.87; BASO % 0.5 % (0-6); EOS % 1.1 % (0-6); GRAN % 60.5 % (47-80); HEMATOCRIT 41.2 % (35.0-47.0); HEMOGLOBIN 14.2 gm/dl (11.6-16.0); LYMPH % 30.2 % (16-45); MEAN CELL VOLUME 88.6 fl (81-97); MEAN CORPUSCULAR HEMOGLOBIN 30.5 pg (27-33); MEAN CORPUSCULAR HGB CONC 34.5 g/dl (32-36); MONO % 7.7 % (0-9); PLATELET COUNT 270 K/uL (130-400); RED BLOOD COUNT 4.65 M/uL (3.80-5.40); RED CELL DISTRIBUTION WIDTH 12.7 % (11.5-14.5); WHITE BLOOD COUNT W/O DIFF 9.7 K/uL (4.2-12.2)
--- NOTE | 2018-11-03 18:23 | Emergency Department Record ---
History of Present Illness - General Chief Complaint: Numbness Stated Complaint: facial tightness Time Seen by Provider: 11/03/18 18:02 Source: Patient Mode of Arrival: Ambulatory Limitations: No limitations - History of Present Illness Initial Comments: pt was cooking dinner when she had an odd occurence where her l side of her face became tigh and drawn back and her eye bulged out. it lasted 30 secs. she looked in a mirror and was 'freaked out' by what she saw Onset/Timin -: Minutes(s) Location: Right face History of same: No Place: Home Severity: Mild Quality: Tingling, Other Associated Symptoms: Denies other symptoms Treatments Prior to Arrival: None - [place] Coma Scale Eye Response: (4) Open spontaneously Motor Response: (6) Obeys commands Verbal Response: (5) Oriented [place] Total: 15 - Symptoms of Stroke Onset of Symptoms Date: 11/03/18 Onset of Symptoms Time: 17:30 Symptoms of stroke: Muscle Weakness, Weakness of Face Muscles - Related Data Allergies/Adverse Reactions: Allergies Allergy/AdvReac Type Severity Reaction Status Date / Time sulfamethoxazole Allergy Intermediate HIVES Verified 11/03/18 17:57 [From Bactrim] amoxicillin trihydrate AdvReac Intermediate VOMITING Verified 11/03/18 17:57 [From Augmentin] ciprofloxacin [From Cipro] AdvReac Intermediate VOMITING Verified 11/03/18 17:57 ciprofloxacin HCl AdvReac Intermediate VOMITING Verified 11/03/18 17:57 [From Cipro] potassium clavulanate AdvReac Intermediate VOMITING Verified 11/03/18 17:57 [From Augmentin] cephalexin monohydrate AdvReac diarrhea Verified 11/03/18 17:57 [From Keflex] nitrofurantoin AdvReac VOMITING Verified 11/03/18 17:57 [From Macrobid] nitrofurantoin AdvReac VOMITING Verified 11/03/18 17:57 macrocrystalline [From Macrobid] Travel Screening - Travel/Exposure Within Last 30 Days Have you traveled within the last 30 days?: No - Travel/Exposure Within Last Year Have you traveled outside the [place] in the last year?: No - Additonal Travel Details Have you been exposed to anyone with a communicable illness?: No - Travel Symptoms Symptom Screening: None Review of Systems Reviewed: No additional complaints except as noted below Constitutional: Reports: As per HPI. Denies: Chills, Fever, Malaise, Night sweats, Weakness, Weight change Eyes: Reports: As per HPI. Denies: Eye discharge, Eye pain, Photophobia, Vision change ENT: Reports: As per HPI. Denies: Congestion, Dental pain, Ear pain, Epistaxis, Hearing loss, Throat pain Respiratory: Reports: As per HPI. Denies: Cough, Dyspnea, Hemoptysis, Stridor, Wheezes Cardiovascular: Reports: As per HPI. Denies: Arrhythmia, Chest pain, Dyspnea on exertion, Edema, Murmurs, Orthopnea, Palpitations, Paroxysmal nocturnal dyspnea, Rheumatic Fever, Syncope Endocrine: Reports: As per HPI. Denies: Fatigue, Heat or cold intolerance, Polydipsia, Polyuria Gastrointestinal: Reports: As per HPI. Denies: Abdominal pain, Constipation, Diarrhea, Hematemesis, Hematochezia, Melena, Nausea, Vomiting Genitourinary: Reports: As per HPI. Denies: Abnormal menses, Discharge, Dyspareunia, Dysuria, Frequency, Hematuria, Incontinence, Retention, Urgency Musculoskeletal: Reports: As per HPI. Denies: Arthralgia, Back pain, Gout, Joint swelling, Myalgia, Neck pain Skin: Reports: As per HPI. Denies: Bruising, Change in color, Change in hair/nails, Lesions, Pruritus, Rash Neurological: Reports: As per HPI. Denies: Abnormal gait, Confusion, Headache, Numbness, Paresthesias, Seizure, Tingling, Tremors, Vertigo, Weakness Psychiatric: Reports: As per HPI. Denies: Anxiety, Auditory hallucinations, Depression, Homicidal thoughts, Suicidal thoughts, Visual hallucinations Hematological/Lymphatic: Reports: As per HPI. Denies: Anemia, Blood Clots, Easy bleeding, Easy bruising, Swollen glands Past Medical History - SOCIAL HISTORY Smoking Status: Former smoker Alcohol Use: None Drug Use: None - RESPIRATORY Hx Respiratory Disorders: No - CARDIOVASCULAR Hx Cardio Disorders: No - NEURO Hx Neuro Disorders: No - GI Hx GI Disorders: Yes Hx Abdominal Pain: Yes Hx Irritable Bowel: Yes - Hx Genitourinary Disorders: Yes Hx UTI: Yes Comment:: sponge kidney-congenital - ENDOCRINE Hx Endocrine Disorders: Yes Hx Thyroid Disease: Yes (Hyper (now resolved)) - MUSCULOSKELETAL Hx Musculoskeletal Disorders: Yes Hx Back Injury: Yes - PSYCH Hx Psych Problems: Yes Hx Anxiety: Yes - HEMATOLOGY/ONCOLOGY Hx Hematology/Oncology Disorders: Yes Hx Blood Transfusions: Yes Hx Blood Transfusion Reaction: No Family Medical History Any Significant Family History?: Yes Hx Cancer: Brother/Sister, Grandparents Hx HTN: Father Hx Seizures: Mother Course Vital Signs 11/03/18 17:47 Temperature 98.8 F Pulse Rate 80 Respiratory 18 Rate Blood Pressure 132/71 Pulse Ox 100 - Reevaluation(s) Reevaluation #1: 11/03/18 18:[address] moscoso Medical Decision Making - Lab Data Result diagrams: 11/03/18 17:55 11/03/18 17:55 Disposition Quality - Quality Measures Quality Measures: N/A - Blood Pressure Screening Does Patient Have Any of the Following: No Blood Pressure Classification: Pre-Hypertensive BP Reading Systolic Measurement: 132 Diastolic Measurement: 71 Screening for High Blood Pressure: < Pre-Hypertensive BP, F/U Documented > [G8950] Pre-Hypertensive Follow-up Interventions: Follow-up with rescreen every year.
[2018-11-03 18:29] LABS: BLOOD UREA NITROGEN 11 mg/dL (6-20); CREATININE 0.5 mg/dL (0.5-0.9); EST GLOMERULAR FILTRATION RATE > 60 mL/min
[2018-11-03 18:32] LABS: GLUCOSE,RANDOM 95 mg/dL (74-109)
--- NOTE | 2018-11-03 18:32 | Emergency Department Record ---
History of Present Illness - General Chief Complaint: Numbness Stated Complaint: facial tightness Time Seen by Provider: 11/03/18 18:02 Source: Patient Mode of Arrival: Ambulatory Limitations: No limitations - History of Present Illness Initial Comments: took over from Dr. Rooney at 6:15 pm and patient was in CT Head and labs pending. Patient said she had a 30 second episode of left face tight and her eyelid was buldged out and no nausea or chest pain or dyspnea. She said she had a typical slight headache not bad enough to take a tylenol. Onset/Timin -: Minutes(s) Location: Right face History of same: No Place: Home Severity: Mild Quality: Tingling, Other Associated Symptoms: Denies other symptoms Treatments Prior to Arrival: None - [place] Coma Scale Eye Response: (4) Open spontaneously Motor Response: (6) Obeys commands Verbal Response: (5) Oriented [place] Total: 15 - Symptoms of Stroke Onset of Symptoms Date: 11/03/18 Onset of Symptoms Time: 17:30 Symptoms of stroke: Muscle Weakness, Weakness of Face Muscles - Related Data Home Medications: Previous Rx's Medication Instructions Recorded Acyclovir [Zovirax] 800 mg PO 5XD #35 tablet 11/03/18 Allergies/Adverse Reactions: Allergies Allergy/AdvReac Type Severity Reaction Status Date / Time sulfamethoxazole Allergy Intermediate HIVES Verified 11/03/18 17:57 [From Bactrim] amoxicillin trihydrate AdvReac Intermediate VOMITING Verified 11/03/18 17:57 [From Augmentin] ciprofloxacin [From Cipro] AdvReac Intermediate VOMITING Verified 11/03/18 17:57 ciprofloxacin HCl AdvReac Intermediate VOMITING Verified 11/03/18 17:57 [From Cipro] potassium clavulanate AdvReac Intermediate VOMITING Verified 11/03/18 17:57 [From Augmentin] cephalexin monohydrate AdvReac diarrhea Verified 11/03/18 17:57 [From Keflex] nitrofurantoin AdvReac VOMITING Verified 11/03/18 17:57 [From Macrobid] nitrofurantoin AdvReac VOMITING Verified 11/03/18 17:57 macrocrystalline [From Macrobid] Travel Screening - Travel/Exposure Within Last 30 Days Have you traveled within the last 30 days?: No - Travel/Exposure Within Last Year Have you traveled outside the [place] in the last year?: No - Additonal Travel Details Have you been exposed to anyone with a communicable illness?: No - Travel Symptoms Symptom Screening: None Review of Systems Constitutional: Reports: As per HPI. Denies: Chills, Fever, Malaise, Night sweats, Weakness, Weight change Eyes: Reports: As per HPI. Denies: Eye discharge, Eye pain, Photophobia, Vision change ENT: Reports: As per HPI. Denies: Congestion, Dental pain, Ear pain, Epistaxis, Hearing loss, Throat pain Respiratory: Reports: As per HPI. Denies: Cough, Dyspnea, Hemoptysis, Stridor, Wheezes Cardiovascular: Reports: As per HPI. Denies: Arrhythmia, Chest pain, Dyspnea on exertion, Edema, Murmurs, Orthopnea, Palpitations, Paroxysmal nocturnal dyspnea, Rheumatic Fever, Syncope Endocrine: Reports: As per HPI. Denies: Fatigue, Heat or cold intolerance, Polydipsia, Polyuria Gastrointestinal: Reports: As per HPI. Denies: Abdominal pain, Constipation, Diarrhea, Hematemesis, Hematochezia, Melena, Nausea, Vomiting Genitourinary: Reports: As per HPI. Denies: Abnormal menses, Discharge, Dyspa reunia, Dysuria, Frequency, Hematuria, Incontinence, Retention, Urgency Musculoskeletal: Reports: As per HPI. Denies: Arthralgia, Back pain, Gout, Joint swelling, Myalgia, Neck pain Skin: Reports: As per HPI. Denies: Bruising, Change in color, Change in hair/nails, Lesions, Pruritus, Rash Neurological: Reports: As per HPI. Denies: Abnormal gait, Confusion, Headache, Numbness, Paresthesias, Seizure, Tingling, Tremors, Vertigo, Weakness Psychiatric: Reports: As per HPI. Denies: Anxiety, Auditory hallucinations, Depression, Homicidal thoughts, Suicidal thoughts, Visual hallucinations Hematological/Lymphatic: Reports: As per HPI. Denies: Anemia, Blood Clots, Easy bleeding, Easy bruising, Swollen glands Past Medical History - SOCIAL HISTORY Smoking Status: Former smoker Alcohol Use: None Drug Use: None - RESPIRATORY Hx Respiratory Disorders: No - CARDIOVASCULAR Hx Cardio Disorders: No - NEURO Hx Neuro Disorders: No - GI Hx GI Disorders: Yes Hx Abdominal Pain: Yes Hx Irritable Bowel: Yes - Hx Genitourinary Disorders: Yes Hx UTI: Yes Comment:: sponge kidney-congenital - ENDOCRINE Hx Endocrine Disorders: Yes Hx Thyroid Disease: Yes (Hyper (now resolved)) - MUSCULOSKELETAL Hx Musculoskeletal Disorders: Yes Hx Back Injury: Yes - PSYCH Hx Psych Problems: Yes Hx Anxiety: Yes - HEMATOLOGY/ONCOLOGY Hx Hematology/Oncology Disorders: Yes Hx Blood Transfusions: Yes Hx Blood Transfusion Reaction: No Family Medical History Any Significant Family History?: Yes Hx Cancer: Brother/Sister, Grandparents Hx HTN: Father Hx Seizures: Mother Physical Exam - General General Appearance: Alert, Oriented x3, Cooperative, No acute distress Limitations: No limitations - Head Head exam: Normal inspection - Eye Eye exam: Normal appearance, PERRL Pupils: Normal accommodation - ENT ENT exam: Normal exam, Mucous membranes moist, Normal external ear exam, Normal orophraynx, TM's normal bilaterally Ear exam: Normal external inspection. negative: External canal tenderness Nasal Exam: Normal inspection. negative: Discharge, Sinus tenderness Mouth exam: Normal external inspection, Tongue normal Teeth exam: Normal inspection. negative: Dental caries Throat exam: Normal inspection. negative: Tonsillar erythema, Tonsillar exudate - Neck Neck exam: Normal inspection, Full ROM. negative: Tenderness - Respiratory Respiratory exam: Normal lung sounds bilaterally. negative: Respiratory distress - Cardiovascular Cardiovascular Exam: Regular rate, Normal rhythm, Normal heart sounds - GI/Abdominal GI/Abdominal exam: Soft, Normal bowel sounds. negative: Tenderness - Rectal Rectal exam: Deferred - exam: Deferred - Extremities Extremities exam: Normal inspection, Full ROM, Normal capillary refill. negative: Tenderness - Back Back exam: Reports: Normal inspection, Full ROM. 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 no skin rashes. will give her a script of acylovir 800 mg five times a day for 7 days and to start that if the symptoms come back and follow up with primary DrJarett if the symptoms return and cane be referred to neurology 11/03/18 18:53 Medical Decision Making - Data Complexity MDM Data: X-Ray Ordered and/or Reviewed (CT of head negative) - Lab Data Result diagrams: 11/03/18 17:55 11/03/18 17:55 Lab Results 11/03/18 Range/Units 17:55 WBC 9.7 (4.2-12.2) K/uL RBC 4.65 (3.80-5.40) M/uL Hgb 14.2 (11.6-16.0) gm/dl Hct 41.2 (35.0-47.0) % MCV 88.6 (81-97) fl MCH 30.5 (27-33) pg MCHC 34.5 (32-36) g/dl RDW 12.7 (11.5-14.5) % Plt Count 270 (130-400) K/uL MPV 11.0 H (7.4-10.4) fl Gran % 60.5 (47-80) % Lymphocytes % 30.2 (16-45) % Monocytes % 7.7 (0-9) % Eosinophils % 1.1 (0-6) % Basophils % 0.5 (0-6) % Absolute Neutrophils 5.87 Disposition Clinical Impression: Numbness, Neuropathy Disposition: Home, Self-Care Condition: (1) Good Instructions: Paresthesia (ED), Herrera Palsy (ED) Additional Instructions: follow up with primary Dr in 4-5 days Prescriptions: Acyclovir [Zovirax] 800 mg PO 5XD #35 tablet Forms: Patient Portal Access Time of Disposition: 19:01 Quality - Quality Measures Quality Measures: N/A - Blood Pressure Screening Does Patient Have Any of the Following: No Blood Pressure Classification: Pre-Hypertensive BP Reading Systolic Measurement: 132 Diastolic Measurement: 71 Screening for High Blood Pressure: < Pre-Hypertensive BP, F/U Documented > [G8950] Pre-Hypertensive Follow-up Interventions: Referral to alternative/primary care provider.
[2018-11-03 18:44] LABS: THYROID STIMULATING HORMONE 3.11 uIU/mL (0.270-4.20)
--- NOTE | 2018-11-07 11:18 | CT SCAN REPORT ---
EXAM: HEAD CT HISTORY: FACIAL TIGHTNESS TODAY. TECHNIQUE: Noncontrast head CT was obtained. Comparison: 01/01/17. FINDINGS: The ventricles and subarachnoid spaces are unremarkable. There is no mass or mass effect. No intra or extraaxial hemorrhage. No CT evidence for large acute territorial infarct. No fracture or acute osseous abnormality identified. The visualized sinuses and orbits are clear. IMPRESSION: UNREMARKABLE HEAD CT. JOB NUMBER: [id number] MTDD
== END 2018-11-03 19:15 | disposition home or self-care (01) ==
LOC: ER 17:44
DX: R20.0 Anesthesia of skin (principal); G62.9 Polyneuropathy, unspecified; Z87.891 Personal history of nicotine dependence
CPT/HCPCS: 70450; 80048; 84443; 85025; 99283; 99284

== ENCOUNTER 2019-05-22 11:51 | Emergency (ER) | payer MEDICAID ==
--- NOTE | 2019-05-22 12:14 | Emergency Department Record ---
History of Present Illness - General Chief complaint: ENT Stated complaint: MOUTH NERVE PAIN Time Seen by Provider: 05/22/19 11:59 Source: Patient Mode of Arrival: Ambulatory Limitations: No limitations - History of Present Illness Initial comments: The patient is here due to L facial pain. She woke up at 4am due to L facial pain just above the L upper teeth near the sinus. She denied any recent congestion, fever, chills, nasal discharge or drainage, ear popping, or facial pressure. Due to the severe pain over the upper teeth she did see her Dentist today who numbed up the area and took the pain away. She then had dental xrays that were all neg so the Dentist told her to see her PCP due to possibly having a sinus infection or TMJ even though the patient has no sinus issues. She did try to see her PCP but he was unavailable so she was told to come to the ER. Presently the patient remains pain free with no problems. MD complaint: Other Onset/Timin -: Hour(s) Severity scale (1-10): 10 Quality: Burning Consistency: Constant Improves with: None Worsens with: None - Related Data Home Medications Medication Instructions Recorded Confirmed Last Taken Trimethoprim 100 mg PO ASDIR 05/22/19 05/22/19 05/22/19 Previous Rx's Medication Instructions Recorded Naproxen [Naprosyn] 250 mg PO BID #14 tablet 05/22/19 Allergies Allergy/AdvReac Type Severity Reaction Status Date / Time sulfamethoxazole Allergy Intermediate HIVES Verified 05/22/19 11:55 [From Bactrim] amoxicillin trihydrate AdvReac Intermediate VOMITING Verified 05/22/19 11:55 [From Augmentin] ciprofloxacin [From Cipro] AdvReac Intermediate VOMITING Verified 05/22/19 11:55 ciprofloxacin HCl AdvReac Intermediate VOMITING Verified 05/22/19 11:55 [From Cipro] potassium clavulanate AdvReac Intermediate VOMITING Verified 05/22/19 11:55 [From Augmentin] cephalexin monohydrate AdvReac diarrhea Verified 05/22/19 11:55 [From Keflex] nitrofurantoin AdvReac VOMITING Verified 05/22/19 11:55 [From Macrobid] nitrofurantoin AdvReac VOMITING Verified 05/22/19 11:55 macrocrystalline [From Macrobid] Travel Screening - Travel/Exposure Within Last 30 Days Have you traveled within the last 30 days?: No - Travel/Exposure Within Last Year Have you traveled outside the [place] in the last year?: No - Additonal Travel Details Have you been exposed to anyone with a communicable illness?: No - Travel Symptoms Symptom Screening: None Review of Systems Constitutional: Denies: Chills, Fever Eyes: Denies: Eye discharge ENT: Reports: Dental pain. Denies: Congestion, Ear pain, Epistaxis, Throat pain Respiratory: Denies: Cough, Dyspnea Past Medical History - SOCIAL HISTORY Smoking Status: Former smoker Alcohol Use: None Drug Use: None - RESPIRATORY Hx Respiratory Disorders: No - CARDIOVASCULAR Hx Cardio Disorders: No - NEURO Hx Neuro Disorders: No - GI Hx GI Disorders: Yes Hx Abdominal Pain: Yes Hx Irritable Bowel: Yes - Hx Genitourinary Disorders: Yes Hx UTI: Yes Comment:: sponge kidney-congenital - ENDOCRINE Hx Endocrine Disorders: Yes Hx Thyroid Disease: Yes (Hyper (now resolved)) - MUSCULOSKELETAL Hx Musculoskeletal Disorders: Yes Hx Back Injury: Yes - PSYCH Hx Psych Problems: Yes Hx Anxiety: Yes - HEMATOLOGY/ONCOLOGY Hx Hematology/Oncology Disorders: Yes Hx Blood Transfusions: Yes Hx Blood Transfusion Reaction: No Family Medical History Any Significant Family History?: Yes Hx Cancer: Brother/Sister, Grandparents Hx HTN: Father Hx Seizures: Mother Physical Exam - General General Appearance: Alert, Oriented x3, Cooperative, No acute distress - Head Head exam: Atraumatic, Normocephalic, Normal inspection - Eye Eye exam: Normal appearance, PERRL, EOMI. negative: Conjunctival injection, Periorbital swelling, Periorbital tenderness - ENT ENT exam: Normal exam, Mucous membranes moist, Normal external ear exam, Normal orophraynx, TM's normal bilaterally Ear exam: Normal external inspection. negative: External canal tenderness Nasal Exam: Normal inspection. negative: Discharge, Sinus tenderness Mouth exam: Normal external inspection, Tongue normal. negative: Drooling, Laceration, Muffled voice, Tongue elevation Teeth exam: Normal inspection. negative: Dental caries Throat exam: Normal inspection. negative: Tonsillar erythema, Tonsillar exudate, R peritonsillar mass, L peritonsillar mass - Neck Neck exam: Normal inspection, Full ROM. negative: Lymphadenopathy, Meningismus, Tenderness - Respiratory Respiratory exam: Normal lung sounds bilaterally. negative: Respiratory distres s - Cardiovascular Cardiovascular Exam: Regular rate, Normal rhythm, Normal heart sounds Course Vital Signs 05/22/19 11:57 Temperature 98.2 F Pulse Rate 91 H Respiratory 20 Rate Blood Pressure 116/54 Pulse Ox 99 - Reevaluation(s) Reevaluation #1: I did explain to the patient that due to not having any sinus pressure, drainage, cough, or nasal discharge I could not see how she could have a sinus infection. Due to the fact the dental blocks took care of the pain the issues most likely by far is dental. She is to take the Naprosyn for pain and see her PCP if the pain returns. 05/22/19 12:19 Disposition Disposition: Discharge Clinical Impression: Facial pain, acute Disposition: Home, Self-Care Condition: (2) Stable Instructions: Atypical Facial Pain (ED) Additional Instructions: Please take the Naprosyn for pain and please see your family doctor next week if not better. Return to the ER for any worsening issues. Prescriptions: Naproxen [Naprosyn] 250 mg PO BID #14 tablet Forms: Patient Portal Access Time of Disposition: 12:14 Quality - Quality Measures Quality Measures: N/A - Blood Pressure Screening View Details: Yes Does Patient Have Any of the Following: No Blood Pressure Classification: Normal BP Reading Systolic Measurement: 116 Diastolic Measurement: 54 Screening for High Blood Pressure: < Normal BP, F/U Not Required > [G8783]
== END 2019-05-22 12:20 | disposition home or self-care (01) ==
LOC: ER 11:51
DX: G50.1 Atypical facial pain (principal); K08.89 Other specified disorders of teeth and supporting structures; Z87.891 Personal history of nicotine dependence
CPT/HCPCS: 99282

== ENCOUNTER 2019-06-11 19:34 | Emergency (ER) | payer MEDICAID ==
[2019-06-11] MEDS ORDERED: KETOROLAC 30 MG/ML VIAL IVP ONE (19:38)
[2019-06-11] MEDS ORDERED: 0.9 % SODIUM CHLORIDE 1000ML 1,000 ML IV SCH (19:45)
--- NOTE | 2019-06-11 20:10 | Emergency Department Record ---
History of Present Illness - General Chief complaint: ENT Stated complaint: MOUTH INFECTION Time Seen by Provider: 06/11/19 19:37 Source: Patient Mode of Arrival: Ambulatory Limitations: No limitations - History of Present Illness Initial comments: 38 yo female presents to ED for evaluation of "pain to the left upper gingival area" that began this evening. Patient reports that she saw her dentist 3 weeks ago, underwent radiographs that appeared negative for infection. Patient reports that she was administered a nerve block that improved her symptoms for the past 3 weeks until today. 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 MD complaint: Tooth pain Onset/Timin -: Days(s) Severity: Moderate Quality: Aching Consistency: Constant Improves with: None Worsens with: None - Related Data Previous Rx's Medication Instructions Recorded Naproxen [Naprosyn] 250 mg PO BID #14 tablet 05/22/19 Allergies Allergy/AdvReac Type Severity Reaction Status Date / Time sulfamethoxazole Allergy Intermediate HIVES Unverified 06/11/19 20:12 [From Bactrim] amoxicillin trihydrate AdvReac Intermediate VOMITING Unverified 06/11/19 20:12 [From Augmentin] ciprofloxacin [From Cipro] AdvReac Intermediate VOMITING Unverified 06/11/19 20:12 ciprofloxacin HCl AdvReac Intermediate VOMITING Unverified 06/11/19 20:12 [From Cipro] potassium clavulanate AdvReac Intermediate VOMITING Unverified 06/11/19 20:12 [From Augmentin] cephalexin monohydrate AdvReac diarrhea Unverified 06/11/19 20:12 [From Keflex] nitrofurantoin AdvReac VOMITING Unverified 06/11/19 20:12 [From Macrobid] nitrofurantoin AdvReac VOMITING Unverified 06/11/19 20:12 macrocrystalline [From Macrobid] Travel Screening - Travel/Exposure Within Last 30 Days Have you traveled within the last 30 days?: No Review of Systems Constitutional: Denies: Chills, Fever, Malaise, Night sweats Eyes: Denies: Eye discharge, Eye pain ENT: Reports: Dental pain. Denies: Congestion, Ear pain, Epistaxis Respiratory: Denies: Cough, Dyspnea Cardiovascular: Denies: Chest pain, Dyspnea on exertion Endocrine: Denies: Fatigue, Heat or cold intolerance Gastrointestinal: Denies: Abdominal pain, Nausea, Vomiting Genitourinary: Denies: Incontinence, Retention Musculoskeletal: Denies: Arthralgia, Back pain Skin: Denies: Bruising, Change in color Neurological: Denies: Abnormal gait, Confusion, Headache, Seizure Psychiatric: Denies: Anxiety Hematological/Lymphatic: Denies: Anemia, Blood Clots Past Medical History - SOCIAL HISTORY Smoking Status: Former smoker - RESPIRATORY Hx Respiratory Disorders: No - CARDIOVASCULAR Hx Cardio Disorders: No - NEURO Hx Neuro Disorders: No - GI Hx GI Disorders: Yes Hx Abdominal Pain: Yes Hx Irritable Bowel: Yes - Hx Genitourinary Disorders: Yes Hx UTI: Yes Comment:: sponge kidney-congenital - ENDOCRINE Hx Endocrine Disorders: Yes Hx Thyroid Disease: Yes (Hyper (now resolved)) - MUSCULOSKELETAL Hx Musculoskeletal Disorders: Yes Hx Back Injury: Yes - PSYCH Hx Psych Problems: Yes Hx Anxiety: Yes - HEMATOLOGY/ONCOLOGY Hx Hematology/Oncology Disorders: Yes Hx Blood Transfusions: Yes Hx Blood Transfusion Reaction: No Family Medical History Any Significant Family History?: Yes Hx Cancer: Brother/Sister, Grandparents Hx HTN: Father Hx Seizures: Mother Physical Exam - General General Appearance: Alert, Oriented x3, Cooperative, Mild distress Limitations: No limitations - Head Head exam: Atraumatic, Normocephalic, Normal inspection Head exam detail: negative: Abrasion, Contusion, Nolan's sign, General tenderness, Hematoma, Laceration Image of Face/Head: 1 - Pain region - Eye Eye exam: Normal appearance. negative: Conjunctival injection, Periorbital swelling, Periorbital tenderness, Scleral icterus - ENT Ear exam: negative: Auricular hematoma, Auricular trauma Nasal Exam: negative: Active bleeding, Discharge, Dried blood, Foreign body Mouth exam: negative: Drooling, Laceration, Muffled voice, Tongue elevation Teeth exam: Dental caries, Other - Neck Neck exam: Normal inspection. negative: Meningismus, Tenderness - Respiratory Respiratory exam: Normal lung sounds bilaterally. negative: Rales, Respiratory distress, Rhonchi, Stridor - Cardiovascular Cardiovascular Exam: Regular rate, Normal rhythm, Normal heart sounds - GI/Abdominal GI/Abdominal exam: Soft. negative: Rebound, Rigid, Tenderness - Rectal Rectal exam: Deferred - exam: Deferred - Extremities Extremities exam: Normal inspection. negative: Pedal edema, Tenderness - Back Back exam: Denies: CVA tenderness (R), CVA tenderness (L) - Neurological Neurological exam: Alert, Normal gait, Oriented X3 - Psychiatric Psychiatric exam: Normal affect, Normal mood - Skin Skin exam: Normal color. negative: Abrasion Type of lesion: negative: abrasion Course Vital Signs 06/11/19 19:44 Pulse Rate [ 110 H Pulse Ox Probe] Respiratory 20 Rate Blood Pressure 116/81 [Left Arm] Pulse Ox 98 - Reevaluation(s) Reevaluation #1: 06/11/19 20:24 Patient was reassessed and reports mild improvement in her pain symptoms. Patient appears stable for discharge at this time. Procedures - Nerve Block Consent Obtained: Verbal consent Time Out Performed: Yes Local Anesthetic Used: Marcaine 0.25% Amount of anesthesia used: 2.5 Side: Left Intraoral Nerve Block: Superior alveolar Procedure Successful: Yes Complications: None Patient Tolerated Procedure: Good Medical Decision Making - Lab Data Result diagrams: 06/11/19 19:38 06/11/19 19:38 Disposition Disposition: Discharge Clinical Impression: Pain, dental Disposition: Home, Self-Care Condition: (2) Stable Instructions: Toothache (ED) Additional Instructions: Return to ED if your symptoms worsen or if you have any concerns. Ibuprofen as directed. Follow-up with your family doctor in 3-5 days as directed. Forms: Patient Portal Access Time of Disposition: 20:25 Quality - Quality Measures Quality Measures: N/A - Blood Pressure Screening Does Patient Have Any of the Following: No Blood Pressure Classification: Pre-Hypertensive BP Reading Systolic Measurement: 116 Diastolic Measurement: 81 Screening for High Blood Pressure: < Pre-Hypertensive BP, F/U Documented > [G8950] Pre-Hypertensive Follow-up Interventions: Referral to alternative/primary care provider.
== END 2019-06-11 20:25 | disposition home or self-care (01) ==
LOC: ER 19:34
DX: K08.89 Other specified disorders of teeth and supporting structures (principal); J01.00 Acute maxillary sinusitis, unspecified; Z87.891 Personal history of nicotine dependence
CPT/HCPCS: 64400; 99283

== ENCOUNTER 2019-06-11 21:23 | Emergency (ER) | payer MEDICAID ==
--- NOTE | 2019-06-11 22:46 | Emergency Department Record ---
History of Present Illness - General Chief complaint: ENT Stated complaint: THINKS SINUS INFECTION Time Seen by Provider: 06/11/19 22:42 Source: Patient Mode of Arrival: Ambulatory Limitations: No limitations - History of Present Illness Initial comments: 38 yo female returns to ED following dental nerve block as she believes her symtpoms may be due to sinusitis. Patient reports that her symptoms began after using her hveer pot 20 days ago, returned 2-3 days ago after using the pot again. Patient does report pain/pressure over the left maxillary sinus region on examination, denies fevers, chills, or sore throat symptoms. MD complaint: Other Onset/Timin -: Days(s) Severity: Moderate Quality: Aching Consistency: Constant Improves with: None Worsens with: None Associated Symptoms: Toothache - Related Data Previous Rx's Medication Instructions Recorded Naproxen [Naprosyn] 250 mg PO BID #14 tablet 05/22/19 Azithromycin [Zithromax] 250 mg PO DAILY #6 tab 06/11/19 Allergies Allergy/AdvReac Type Severity Reaction Status Date / Time sulfamethoxazole Allergy Intermediate HIVES Unverified 06/11/19 20:12 [From Bactrim] amoxicillin trihydrate AdvReac Intermediate VOMITING Unverified 06/11/19 20:12 [From Augmentin] ciprofloxacin [From Cipro] AdvReac Intermediate VOMITING Unverified 06/11/19 20:12 ciprofloxacin HCl AdvReac Intermediate VOMITING Unverified 06/11/19 20:12 [From Cipro] potassium clavulanate AdvReac Intermediate VOMITING Unverified 06/11/19 20:12 [From Augmentin] cephalexin monohydrate AdvReac diarrhea Unverified 06/11/19 20:12 [From Keflex] nitrofurantoin AdvReac VOMITING Unverified 06/11/19 20:12 [From Macrobid] nitrofurantoin AdvReac VOMITING Unverified 06/11/19 20:12 macrocrystalline [From Macrobid] Travel Screening - Travel/Exposure Within Last 30 Days Have you traveled within the last 30 days?: No - Travel Symptoms Symptom Screening: None Review of Systems Constitutional: Denies: Chills, Fever, Malaise, Night sweats Eyes: Denies: Eye discharge, Eye pain ENT: Reports: Dental pain. Denies: Congestion, Ear pain, Epistaxis Respiratory: Denies: Cough, Dyspnea Cardiovascular: Denies: Chest pain, Dyspnea on exertion Endocrine: Denies: Fatigue, Heat or cold intolerance Gastrointestinal: Denies: Abdominal pain, Nausea, Vomiting Genitourinary: Denies: Incontinence, Retention Musculoskeletal: Denies: Arthralgia, Back pain, Gout, Joint swelling Skin: Denies: Bruising, Change in color Neurological: Denies: Abnormal gait, Confusion, Headache, Seizure Psychiatric: Denies: Anxiety Hematological/Lymphatic: Denies: Anemia, Blood Clots Past Medical History - SOCIAL HISTORY Smoking Status: Former smoker Alcohol Use: None Drug Use: None - RESPIRATORY Hx Respiratory Disorders: No - CARDIOVASCULAR Hx Cardio Disorders: No - NEURO Hx Neuro Disorders: No - GI Hx GI Disorders: Yes Hx Abdominal Pain: Yes Hx Irritable Bowel: Yes - Hx Genitourinary Disorders: Yes Hx UTI: Yes Comment:: sponge kidney-congenital - ENDOCRINE Hx Endocrine Disorders: Yes Hx Thyroid Disease: Yes (Hyper (now resolved)) - MUSCULOSKELETAL Hx Musculoskeletal Disorders: Yes Hx Back Injury: Yes - PSYCH Hx Psych Problems: Yes Hx Anxiety: Yes - HEMATOLOGY/ONCOLOGY Hx Hematology/Oncology Disorders: Yes Hx Blood Transfusions: Yes Hx Blood Transfusion Reaction: No Family Medical History Any Significant Family History?: Yes Hx Cancer: Brother/Sister, Grandparents Hx HTN: Father Hx Seizures: Mother Physical Exam - General General Appearance: Alert, Oriented x3, Cooperative, Mild distress Limitations: No limitations - Head Head exam: Atraumatic, Normocephalic, Normal inspection Head exam detail: negative: Abrasion, Contusion, Nolan's sign, General tenderness, Hematoma, Laceration - Eye Eye exam: Normal appearance. negative: Conjunctival injection, Periorbital swelling, Periorbital tenderness, Scleral icterus - ENT Ear exam: negative: Auricular hematoma, Auricular trauma Nasal Exam: negative: Active bleeding, Discharge, Dried blood, Foreign body Mouth exam: negative: Drooling, Laceration, Muffled voice, Tongue elevation - Neck Neck exam: Normal inspection. negative: Meningismus, Tenderness - Respiratory Respiratory exam: Normal lung sounds bilaterally. negative: Rales, Respiratory distress, Rhonchi, Stridor - Cardiovascular Cardiovascular Exam: Regular rate, Normal rhythm, Normal heart sounds - GI/Abdominal GI/Abdominal exam: Soft. negative: Rebound, Rigid, Tenderness - Rectal Rectal exam: Deferred - exam: Deferred - Extremities Extremities exam: Normal inspection. negative: Pedal edema, Tenderness - Back Back exam: Denies: CVA tenderness (R), CVA tenderness (L) - Neurological Neurological exam: Alert, Normal gait, Oriented X3 - Psychiatric Psychiatric exam: Normal affect, Normal mood - Skin Skin exam: Normal color. negative: Abrasion Type of lesion: negative: abrasion Course Vital Signs 06/11/19 22:28 Temperature 98.5 F Pulse Rate 81 Respiratory 18 Rate Blood Pressure 124/68 Pulse Ox 99 - Reevaluation(s) Reevaluation #1: 06/11/19 22:54 Patient was seen and examined Believes her symptoms may the result of sinusitis. Will prescribe Zithromax as requested by the patient for her symptoms. Patient appears stable for discharge at this time. Disposition Disposition: Discharge Clinical Impression: Sinusitis Qualifiers: Sinusitis location: maxillary Chronicity: acute Recurrence: not specified as recurrent Qualified Code(s): J01.00 - Acute maxillary sinusitis, unspecified Disposition: Home, Self-Care Condition: (2) Stable Instructions: Sinusitis (ED) Additional Instructions: Return to ED if your symptoms worsen or if you have any concerns. Zithromax as directed. Follow-up with your family doctor in 3-5 days as directed. Prescriptions: Azithromycin [Zithromax] 250 mg PO DAILY #6 tab Forms: Patient Portal Access Time of Disposition: 22:45 Quality - Quality Measures Quality Measures: N/A - Blood Pressure Screening Does Patient Have Any of the Following: No Blood Pressure Classification: Pre-Hypertensive BP Reading Systolic Measurement: 124 Diastolic Measurement: 68 Screening for High Blood Pressure: < Pre-Hypertensive BP, F/U Documented > [G8950] Pre-Hypertensive Follow-up Interventions: Referral to alternative/primary care provider.
== END 2019-06-11 22:50 | disposition home or self-care (01) ==
LOC: ER 21:23
DX: J01.00 Acute maxillary sinusitis, unspecified (principal); Z87.891 Personal history of nicotine dependence